=== PATIENT | female | born 1940 | race Caucasian/White ===

== ENCOUNTER → 2018-11-23 | Outpatient (CLI) | payer OTHER ==
[~2018-11-23] MED LIST: ALBUTEROL SULF8.5 GM IH; ANTABUSE250 M1 PO; CALCIUM 600 +1 EAC1 PO; CENTRUM SILVER1 EAC4 PO; LAMISIL250 MG PO; NALTREXONE HCL5 GM PO; NORCO 5-325 TA1 EACH PO; NORVASC5 MG PO; PRILOSEC20 MG PO; PRINIVIL20 MG PO; PROZAC20 MG PO; ZOCOR20 MG PO
--- NOTE | 2018-11-23 14:28 | 2DMMODE ---
[facility] [employer] [place] [address] 2 D/M-MODE ECHOCARDIOGRAM Name: TRACEY NGO Room #: REG [facility].#: [id number] ������������� Admission: 11/23/18 ������������� Attend Phys: Alejandro Tang Discharge: ��� ������������� ��� Date of : 44 Date of Service: 11/23/18 1427 �� Report #: [id number] �������� ��������������������������������������������[id number] THIS REPORT FOR: //name// APPROVED REPORT Study performed: 11/23/2018 13:34:24 EXAM: Comprehensive 2D, Doppler, and color-flow Echocardiogram Patient Location: Out-Patient Room #: Echo lab 2 Status: routine BSA: 1.71 HR: 63 bpm BP: 136/76 mmHg Rhythm: NSR Other Information Study Quality: Good Indications Pacemaker Hypertension/HDD 2D Dimensions RVDd: 29.42 mm IVSd: 8.04 (7-11mm) LVOT Diam: 19.16 (18-24mm) LVDd: 47.43 mm PWd: 8.48 (7-11mm) Ascending Ao: 24.17 (22-36mm) LVDs: 32.70 (25-40mm) Aortic Root: 29.42 mm IVC: 15.00 mm Volumes Left Atrial Volume (Systole) Single Plane 4CH: 57.55 mL Single Plane 2CH: 66.02 mL LA ESV Index: 38.00 mL/m2 Aortic Valve AoV Peak Santino.: 1.45 m/s AO Peak Gr.: 8.36 mmHg LVOT Max P.28 mmHg LVOT Max V: 1.03 m/s CLAUS Vmax: 2.06 cm2 Mitral Valve E/A Ratio: 0.9 MV Decel. Time: 219.02 ms [facility] [address] [place] [address] 2 D/M-MODE ECHOCARDIOGRAM Name: TRACEY NGO Room #: [facility]#: [id number] ������������� Admission: 11/23/18 ������������� Attend Phys: Alejandro Tang Discharge: ��� ������������� ��� Date of : 44 Date of Service: 11/23/18 1427 �� Report #: [id number] �������� ��������������������������������������������[id number] MV E Max Santino.: 0.88 m/s MV A Santino.: 0.99 m/s MV PHT: 63.52 ms IVRT: 101.50 ms Pulmonary Valve PV Peak Santino.: 1.11 m/s PV Peak Gr.: 4.93 mmHg Pulmonary Vein P Vein S: 0.51 m/s P Vein A: 0.28 m/s P Vein D: 0.45 m/s P Vein A Dur.: 133.8 msec P Vein S/D Ratio: 1.13 Tricuspid Valve TR Peak Santino.: 2.40 m/s TR Peak Gr.: 23.02 mmHg PA Pressure: 28.00 mmHg Left Ventricle The left ventricle is normal size. There is normal LV segmental wall motion. There is normal left ventricular wall thickness. Left ventricular systolic function is normal. The left ventricular ejection fraction is within the normal range. LVEF is 55-60%. Grade II - pseudonormal filling dynamics. Right Ventricle The right ventricle is normal size. The right ventricular systolic function is normal. Pacemaker lead is present in the right ventricle. Atria Left atrium is mildly dilated. The right atrium size is normal. Pacemaker lead is present in the right atrium. Aortic Valve The aortic valve is normal in structure. No aortic regurgitation is present. There is no aortic valvular stenosis. Mitral Valve The mitral valve is normal in structure. Mild mitral regurgitation. No evidence of mitral valve stenosis. Tricuspid Valve The tricuspid valve is normal in structure. There is trace to mild tricuspid regurgitation. Estimated PAP 28 mmHg. There is no pulmonary hypertension. [facility] [address] [place] [address] 2 D/M-MODE ECHOCARDIOGRAM Name: TRACEY NGO Room #: REG [facility]#: [id number] ������������� Admission: 11/23/18 ������������� Attend Phys: Alejandro Tang Discharge: ��� ������������� ��� Date of : 44 Date of Service: 11/23/18 1427 �� Report #: [id number] �������� ��������������������������������������������[id number] Pulmonic Valve The pulmonary valve is normal in structure. Trace pulmonic regurgitation. Great Vessels The aortic root is normal in size. IVC is normal in size and collapses >50% with inspiration. Pericardium There is no pericardial effusion. <Conclusion> The left ventricle is normal size. There is normal left ventricular wall thickness. Left ventricular systolic function is normal. Grade II - pseudonormal filling dynamics. The right ventricle is normal size. Pacemaker lead is present in the right ventricle. Left atrium is mildly dilated. The right atrium size is normal. Pacemaker lead is present in the right atrium. The aortic valve is normal in structure. Mild mitral regurgitation. There is trace to mild tricuspid regurgitation. Estimated PAP 28 mmHg. ��������������������������������������������� <ELECTRONICALLY SIGNED> ���������������������������������������� By: Hesham Baird MD ��������������������������������������������� 11/23/18 1427 1427 1427 Hesham Baird MD /INF
== END ==
LOC: CV 12:01
DX: I34.0 Nonrheumatic mitral (valve) insufficiency (principal); Z95.0 Presence of cardiac pacemaker

== ENCOUNTER → 2019-11-28 | Outpatient (CLI) | payer OTHER | LOC: SJCVC 12:55 | PROVIDERS: ATTEND Internal Medicine Cardiovascular Disease | DX: I45.10 Unspecified right bundle-branch block (principal); R94.31 Abnormal electrocardiogram [ECG] [EKG]; I11.0 Hypertensive heart disease with heart failure; I50.30 Unspecified diastolic (congestive) heart failure; R00.1 Bradycardia, unspecified; E78.5 Hyperlipidemia, unspecified; K21.9 Gastro-esophageal reflux disease without esophagitis; Z82.49 Family history of ischemic heart disease and other diseases of the circulatory system; Z79.899 Other long term (current) drug therapy; Z87.891 Personal history of nicotine dependence; Z95.0 Presence of cardiac pacemaker ==

== ENCOUNTER → 2020-12-02 | Outpatient (CLI) | payer OTHER | LOC: SJCVCIMAG 07:36 | PROVIDERS: ATTEND Internal Medicine Cardiovascular Disease | DX: I08.1 Rheumatic disorders of both mitral and tricuspid valves (principal); R94.31 Abnormal electrocardiogram [ECG] [EKG]; I45.10 Unspecified right bundle-branch block; I11.0 Hypertensive heart disease with heart failure; I50.30 Unspecified diastolic (congestive) heart failure; E78.5 Hyperlipidemia, unspecified; K21.9 Gastro-esophageal reflux disease without esophagitis; Z95.0 Presence of cardiac pacemaker; Z90.710 Acquired absence of both cervix and uterus; Z88.8 Allergy status to other drugs, medicaments and biological substances; Z79.899 Other long term (current) drug therapy; Z87.891 Personal history of nicotine dependence; Z82.49 Family history of ischemic heart disease and other diseases of the circulatory system ==